=== PATIENT | female | born 1960 | race Caucasian/White ===

== ENCOUNTER 2025-11-12 17:41 | Outpatient (CLI) | payer OTHER, SELFPAY | END 2025-11-12 17:42 | disposition home or self-care (01) | LOC: NFLDREF 11-17 21:14 | PROVIDERS: PCP Family Medicine; Referring Provider Family Medicine; Visit Provider Physician Assistant Surgical | DX: N30.01 Acute cystitis with hematuria (principal) | CPT/HCPCS: 87086 ==